=== PATIENT | male | born 1950 | race Caucasian/White ===

== ENCOUNTER 2017-02-07 09:23 | Observation (INO) | payer OTHER, MEDICARE ==
[2017-02-07] MEDS ORDERED: NS 1,000 ML IV ONE (09:35)
[2017-02-07] MEDS ORDERED: ASPIRIN EC 325 MG TAB PO ONE ×2 (09:35→09:59)
[2017-02-07] MEDS ORDERED: FAMOTIDINE 20 MG TAB PO ONE (09:35)
[2017-02-07] MEDS ORDERED: DIAZEPAM 5 MG TAB PO ONE (09:35)
[2017-02-07] MEDS ORDERED: diphenhydrAMINE 25 MG CAP PO ONE ×2 (09:35→09:59)
--- NOTE | 2017-02-07 09:54 | CPEKG ---
Heart Rate: 58 RR Interval: 1034 P-R Interval: 212 QRSD Interval: 98 QT Interval: 440 QTC Interval: 433 P [place]: 53 QRS [place]: -7 T Wave [place]: 32 EKG Severity - NORMAL ECG - EKG Impression: SINUS RHYTHM EKG Impression: FIRST DEGREE AVB Electronically Signed By: Anatoly Cramer 07-Feb-2017 17:34:57
--- NOTE | 2017-02-07 09:54 | CPEKG ---
Heart Rate: 58 RR Interval: 1034 P-R Interval: 212 QRSD Interval: 98 QT Interval: 440 QTC Interval: 433 P [place]: 53 QRS [place]: -7 T Wave [place]: 32 EKG Severity - NORMAL ECG - EKG Impression: SINUS RHYTHM EKG Impression: FIRST DEGREE AVB Electronically Signed By: Anatoly Cramer 07-Feb-2017 17:34:57
[2017-02-07] MEDS ORDERED: FAMOTIDINE 20 MG TAB ONE (09:59)
[2017-02-07] MEDS ORDERED: DIAZEPAM 5 MG TAB ONE (09:59)
[2017-02-07 10:08] LABS: PLATELET COUNT 209 10^3/uL (150-400)
[2017-02-07 10:18] LABS: INR 0.93 (0.83-1.16); PROTIME(PATIENT) 12.4 SEC (12.0-15.0)
--- NOTE | 2017-02-07 12:29 | PDGENHP ---
History & Physical History of Present Illness: 66 year old with hx of signigicant calcium score of 1290 with evidence of increasing pvc's, couplets with exertion coupled with new moderate area of ischemia in the inferior and inferior lateral wall. Pertinent Past, Social, Family History: CAD, Essential htn, pvcs, family hx cad. Relevant Physical Exam: Normal exam.
--- NOTE | 2017-02-07 12:31 | PDPROPOC ---
Sedation Plan of Care Sedation Plan of Care: vital signs stable, mental status noted, patient educated of risks, benefits, alternatives, patient can tolerate sedation ASA Classification: ASA 2 Planned drugs: fentanyl, midazolam Mallampati Score: Class 2 Mallampati Reference Image: Patient passed 3-3-2 rule?: Yes
[2017-02-07] MEDS ORDERED: fentaNYL 100 MCG/2 ML INJ ONE ×2 (13:27→14:44)
[2017-02-07] MEDS ORDERED: LIDOCAINE 1% 300 MG/30 ML SDV ONE (13:27)
[2017-02-07] MEDS ORDERED: MIDAZOLAM 2 MG/2 ML VIAL ONE ×2 (13:28→14:30)
[2017-02-07] MEDS ORDERED: IOPAMIDOL (ISOVUE-370) 150 ML BTL IV ONE (13:28)
[2017-02-07] MEDS ORDERED: HEPARIN 10,000 UNIT/10 ML MDV ONE (14:39)
[2017-02-07] MEDS ORDERED: NITROGLYCERIN 1,500 MCG/15 ML VIAL MISC ONE (14:40)
[2017-02-07] MEDS ORDERED: CLOPIDOGREL BISULFATE 75 MG TAB ONE ×2 (15:02→15:03)
[2017-02-07] MEDS ORDERED: ONDANSETRON 4 MG/2 ML VIAL IVP PRN (15:09)
[2017-02-07] MEDS ORDERED: NITROGLYCERIN 0.4 MG BTL SL PRN (15:09)
[2017-02-07] MEDS ORDERED: HYDROCODONE/APAP 5/325 TAB PO PRN (15:09)
[2017-02-07] MEDS ORDERED: OXYCODONE/APAP 5/325 TAB PO PRN (15:09)
[2017-02-07] MEDS ORDERED: ATROPINE SULFATE 1 MG/10 ML SYR IVP PRN (15:09)
[2017-02-07] MEDS ORDERED: CLOPIDOGREL BISULFATE 75 MG TAB PO ONE ×2 (15:12→15:15)
[2017-02-07] MEDS ORDERED: TEMAZEPAM 15 MG CAP PO PRN (15:15)
[2017-02-07] MEDS ORDERED: LORazepam 2 MG/ML INJ IVP PRN (15:15)
--- NOTE | 2017-02-07 15:21 | PDCTREPORT ---
Cardiothoracic Procedure Rpt Cardiothoracic Procedure Report: Procedure: PCI of the circumflex. Indications: 66-year-old male exertional chest pain consistent with angina, moderately abnormal nuclear stress test with inferolateral ischemia under the care of Dr. Harrison. I am asked by Dr. Harrison to perform PCI of the robinson circumflex. For details of the procedure please see attached computer report. I reviewed the diagnostic angiograms. Patient was anticoagulated with heparin. Using a 6 Japanese EBU 3.75 guiding catheter left main coronary selectively intubated. Using a 0.014 luge wire the circumflex artery stenosis was crossed. The vessel was sized using Q CA. A 2.25 x 20 mm synergy stent was placed on the wire and positioned across the lesion. It was deployed using a single inflation. Stent balloon was used to post dilate the stent. Final orthogonal angiogram showed MORIAH grade 3 flow. Arteriotomy was closed using a Perclose. Conclusions: Successful PCI and stenting of the circumflex artery. Continue dual antiplatelet therapy uninterrupted for 1 year. Aggressive secondary prevention per Dr. Harrison. Patient Problems: Problems Problem Status Onset Status post coronary artery stent placement Acute Abnormal exercise myocardial perfusion study Acute Coronary artery disease Acute Osteoarthritis of knees, bilateral Acute
--- NOTE | 2017-02-07 15:29 | GPN ---
[f rep st] PROCEDURE NOTE DATE OF PROCEDURE: 02/07/2017 INDICATION FOR PROCEDURE: Patient with severely elevated calcium score of approximately 1200, with a bnormal exercise nuclear stress test and evidence of a moderate area of ischemia in the inferior late ral wall coupled with increasing PVCs and ventricular ectopy with exertion. PROCEDURES PERFORMED: 1. Left heart catheterization. 2. Left coronary angiography. 3. Right coronary angiography. 4. Left ventriculogram. 5. Right common femoral artery angiography. PROCEDURE: After informed consent was obtained, the patient was taken to the cardiac catheterization lab where he was prepped and draped in a sterile fashion. Using 1% lidocaine, the right groin was a nesthetized. Using modified Seldinger technique, a 6-Azerbaijani catheter was placed into the right commo n femoral artery without complications. A JL4 catheter was used to take images of the left coronary anatomy in multiple projections. JL4 catheter was exchanged over a guidewire for a JR4 catheter. JR 4 catheter was used to take images of the right coronary artery in multiple projections. JR4 cathete r was exchanged over a guidewire. An angled pigtail catheter was used was used to cross the aortic valve into the left ventricular cavi ty. LVEDP was assessed. Left ventriculogram was performed. Aortic valve gradient was assessed on p ull-back. Angled pigtail catheter was removed over a guidewire without complications. Imaging of th e right common femoral artery demonstrates appropriate placement at mid femoral head of the right com mon femoral artery catheter with no evidence of trauma to the right common femoral artery or iliac sy stem. FINDINGS: 1. Left main normal size and caliber, bifurcates into left anterior descending and left circumflex c oronary artery. There is no evidence of coronary disease in the left main. 2. Left anterior descending is a large caliber vessel that wraps around the left ventricular apex. There are mild luminal irregularities within the left anterior descending, with no evidence of flow-l imiting stenosis. 3. Left circumflex artery demonstrates a moderate-sized mid circumflex stenosis of approximately 70% to 8%. Obtuse marginal branch demonstrates mild luminal irregularities. 4. Right coronary artery is a large caliber dominant artery that bifurcates into PDA and PLV branche s. There are mild luminal irregularities within the right coronary artery, with no evidence of flow- limiting stenosis. 5. Hemodynamics: LVEF 60% to 65%. LVEDP 22 mmHg. Aortic valve gradient none. CONCLUSIONS: 1. Severe single-vessel disease with 70% to 80% stenosis in the mid circumflex coronary artery. 2. Mild luminal irregularities within the left anterior descending and right coronary artery. 3. Normal left ventricular size and function. After reviewing images with significant stenosis within the mid circumflex vessel and with evidence o f inferior lateral wall ischemia, will plan for percutaneous coronary intervention to the circumflex vessel. /[id number]/MODL
--- NOTE | 2017-02-07 15:43 | CPEKG ---
Heart Rate: 52 RR Interval: 1154 P-R Interval: 228 QRSD Interval: 88 QT Interval: 480 QTC Interval: 447 P [place]: 53 QRS [place]: -15 T Wave [place]: 35 EKG Severity - ABNORMAL ECG - EKG Impression: SINUS RHYTHM EKG Impression: VENTRICULAR PREMATURE COMPLEX EKG Impression: FIRST DEGREE AV BLOCK EKG Impression: BORDERLINE LEFT AXIS DEVIATION Electronically Signed By: Anatoly Cramer 07-Feb-2017 17:35:05
[2017-02-07] MEDS ORDERED: amLODIPine BESYLATE 5 MG TAB ONE (16:17)
[2017-02-08 05:02] VITALS: RESP 18
--- NOTE | 2017-02-08 06:13 | PDCARPN ---
Cardiology Progress Note Assessment/Plan: Assessment: 1. CAD with PCI x one to LCX 2. Post of groin bleed 3. Essential Hypertension 4. Hyperlipidemia 5. PVC's Plan: -out of bed this AM and ambulation prior to discharge. Please have cardiology service assess groin prior to discharge -Pt is scheduled for follow up in our office next week -added amlodipine 5 mg daily -increased atorvastatin to 80 mg daily -added plavix 75 mg daily x one year -continue all other out patient medications -Cardiac Rehab 02/08/17 06:10 Subjective: 66 year old male with abnormal nuc with inferior lateral ischemia with single vessel CAD in LCX sp PCI x one. Post op course complicated by groin site bleeding.Hemostasis is now achieved, ecchymosis withoiut hematoma. Pt is asymptoamtic. BP was elevated post op. added amlopdine, bp well controlled with adddtion of amlodipiine.Pt is withoiut complaint this am. Distal pulses in tact Reviewed/Discussed With: multidisciplinary team Time Spent With Patient: 20 minutes Objective: Vital Signs (8 Hrs) Temp Pulse Resp BP Pulse Ox 02/08/17 05:01 36.6 C 53 L 18 143/78 H 91 L 02/07/17 23:53 36.8 C 57 L 16 117/71 95 02/07/17 22:50 117/71 02/07/17 22:40 139/76 H 02/07/17 22:30 121/77 H 02/07/17 22:20 132/71 H Intake/Output (24 Hrs) 02/07/17 02/08/17 02/09/17 05:59 05:59 05:59 Intake Total 2200 Balance 2200 Intake: Oral (ml) 1300 IV Intake (ml) 900 Other: Weight 102.1 kg Number of Voids Urinal 1 Result Diagrams: 02/07/17 09:50 02/07/17 09:50 - Physical Exam Constitutional: WDWN Cardiovascular: regular rate and rhythm Peripheral Pulses: 2+: dorsalis-pedis (R), dorsalis-pedis (L) Musculoskeletal: no muscular tenderness Neurologic: AAOx3, CN II-XII grossly intact Psychiatric: cooperative, interactive ICD10 Worksheet Patient Problems: Problems Problem Status Onset Abnormal exercise myocardial perfusion study Acute Coronary artery disease Acute Status post coronary artery stent placement Acute Osteoarthritis of knees, bilateral Acute
--- NOTE | 2017-02-08 07:13 | GDS ---
[f rep st] DISCHARGE SUMMARY INDICATION FOR ADMISSION: Elective outpatient diagnostic left heart catheterization in the setting of evidence of inferior lateral ischemia, increased ventricular ectopy in the setting of known markedly elevated calcium score of approximately 1200. HOSPITAL COURSE: The patient was admitted for elective diagnostic left heart catheterization which demonstrated a hemodynamically significant stenosis in the mid circumflex vessel. He underwent successful PCI x1 to the mid circumflex vessel without complications. Postoperatively, he did have some right groin bleeding from the femoral artery site. He had a 2nd episode of bleeding about 8 p.m. last night requiring FemoStop deployment. Hemostasis was achieved by approximately 9:30. He has had no further episodes of bleeding throughout the course of the night. On my examination this morning, there is evidence of ecchymosis without hematoma and no active bleeding. His blood pressure was noted to be elevated postoperatively and he was given a one time p.o. dose of amlodipine 10 mg daily on top of his current antihypertensive medications including losartan 100 mg once daily and metoprolol tartrate 25 mg p.o. b.i.d. Postoperatively this morning he is feeling well, he has no cardiac complaints. He is hemodynamically stable. Lipids are suboptimally controlled on his current dose of atorvastatin with LDL of 76. PLAN TODAY: 1. The patient will be discharged home after ambulation and evaluation of right groin site prior to discharge. 2. Will add amlodipine 5 mg once daily. 3. Add Plavix 75 mg daily. 4. Increase atorvastatin to 80 mg daily. 5. No other changes to his outpatient medical therapy including remaining on aspirin 81 mg daily. 6. Post left heart catheterization instructions have been reviewed. 7. Patient will be initiated in cardiac rehab. 8. The patient is scheduled to follow up in my office in 1 week. 30 minutes spent coordinating care /[id number]/MODL MTDD
[2017-02-08 08:05] VITALS: BP 143/86; PULSE 66; TEMP 98.2; O2SAT 97
[2017-02-08] MEDS ORDERED: CLOPIDOGREL BISULFATE 75 MG TAB PO SCH ×2 (09:00)
[2017-02-08] MEDS ORDERED: ASPIRIN EC 325 MG TAB PO SCH (09:00)
[2017-02-08] MEDS ORDERED: amLODIPine BESYLATE 5 MG TAB PO SCH (09:00)
[2017-02-08] MEDS ORDERED: LOSARTAN POTASSIUM 50 MG TAB PO SCH (09:00)
[2017-02-08] MEDS ORDERED: METOPROLOL TARTRATE 25 MG TAB PO SCH (09:00)
[2017-02-08] MEDS ORDERED: NON-FORMULARY NEW DRUG (Losartan Potassium [Cozaar] 100 MG) PO SCH (09:00)
[2017-02-08] MEDS ORDERED: ATORVASTATIN CALCIUM 40 MG TAB PO SCH ×3 (09:00)
[2017-02-08] MEDS ORDERED: MULTIVITAMINS 1 EACH TAB PO SCH (09:00)
[2017-02-08] MEDS ORDERED: NON-FORMULARY NEW DRUG (Omeprazole [Prilosec 20 Mg] 40 MG) PO SCH (09:00)
[2017-02-08] MEDS ORDERED: PANTOPRAZOLE SODIUM 40 MG TAB PO SCH (09:00)
[2017-02-08] MEDS ORDERED: ALLOPURINOL 300 MG TAB PO SCH (09:00)
--- NOTE | 2017-02-08 10:05 | ASDISCHSUM ---
Discharge Information Plan Status:Home with No Needs Medically Cleared to Leave:02/08/2017 Discharge Date:02/08/2017 09:10 AM CM D/C Disposition:Home, Routine, Self-Care ADT D/C Disposition:Home, Routine, Self-Care Projected Discharge Date:02/08/2017 09:10 AM Transportation at D/C:Self Discharge Delay Reason: Follow-Up Date:02/08/2017 09:10 AM Discharge Slot: Final Diagnosis: Placement Information Patient Contact Information Contact Name:MARILY Relationship:Daughter [address] Work Phone: City:[place] Alternate Phone: [facility]/Zip Code:[place] [address] Email: Financial Information Financial Class:MC Primary Plan Desc:MEDICARE OUTPATIENT Primary Plan Number:[id number] Secondary Plan Desc:AARP/MDR SUPPLEMENT Secondary Plan Number:[id number] Assessment Information Intervention Information
--- NOTE | 2017-02-08 10:05 | ASDISCHSUM ---
Discharge Information Plan Status:Home with No Needs Medically Cleared to Leave:02/08/2017 Discharge Date:02/08/2017 09:10 AM CM D/C Disposition:Home, Routine, Self-Care ADT D/C Disposition:Home, Routine, Self-Care Projected Discharge Date:02/08/2017 09:10 AM Transportation at D/C:Self Discharge Delay Reason: Follow-Up Date:02/08/2017 09:10 AM Discharge Slot: Final Diagnosis: Placement Information Patient Contact Information Contact Name:MARILY Relationship:Daughter [address] Work Phone: City:[place] Alternate Phone: [facility]/Zip Code:[place] [address] Email: Financial Information Financial Class:MC Primary Plan Desc:MEDICARE OUTPATIENT Primary Plan Number:[id number] Secondary Plan Desc:AARP/MDR SUPPLEMENT Secondary Plan Number:[id number] Assessment Information Intervention Information
--- NOTE | 2017-02-08 10:05 | ASDISCHSUM ---
Discharge Information Plan Status:Home with No Needs Medically Cleared to Leave:02/08/2017 Discharge Date:02/08/2017 09:10 AM CM D/C Disposition:Home, Routine, Self-Care ADT D/C Disposition:Home, Routine, Self-Care Projected Discharge Date:02/08/2017 09:10 AM Transportation at D/C:Self Discharge Delay Reason: Follow-Up Date:02/08/2017 09:10 AM Discharge Slot: Final Diagnosis: Placement Information Patient Contact Information Contact Name:MARILY Relationship:Daughter [address] [place] Work Phone: City:[place] Alternate Phone: [facility]/Zip Code:[place] [address] Email: Financial Information Financial Class:MC Primary Plan Desc:MEDICARE OUTPATIENT Primary Plan Number:[id number] Secondary Plan Desc:AARP/MDR SUPPLEMENT Secondary Plan Number:[id number] Assessment Information Intervention Information
== END 2017-02-08 09:10 | disposition home or self-care (01) ==
LOC: FCATH 09:23 → F2W 15:09
PROVIDERS: ADMIT Internal Medicine Cardiovascular Disease; ATTEND Internal Medicine Cardiovascular Disease
PROC: 027034Z Dilation of Coronary Artery, One Artery with Drug-eluting Intraluminal Device, Percutaneous Approach (ICD-10-PCS; principal; 2017-02-07)
PROC: 4A023N7 Measurement of Cardiac Sampling and Pressure, Left Heart, Percutaneous Approach (ICD-10-PCS; 2017-02-07)
PROC: B2151ZZ Fluoroscopy of Left Heart using Low Osmolar Contrast (ICD-10-PCS; 2017-02-07)
PROC: B2111ZZ Fluoroscopy of Multiple Coronary Arteries using Low Osmolar Contrast (ICD-10-PCS; 2017-02-07)
DX: I25.119 Atherosclerotic heart disease of native coronary artery with unspecified angina pectoris (principal); I97.610 Postprocedural hemorrhage of a circulatory system organ or structure following a cardiac catheterization; I97.3 Postprocedural hypertension; R94.39 Abnormal result of other cardiovascular function study; I10 Essential (primary) hypertension; E78.5 Hyperlipidemia, unspecified; I47.1 Supraventricular tachycardia; M10.9 Gout, unspecified; K21.0 Gastro-esophageal reflux disease with esophagitis; Z82.49 Family history of ischemic heart disease and other diseases of the circulatory system
CPT/HCPCS: 93005; 93458; C1760; C1769; C1874; C1887; C9600; J1200; J1644; J2250; J3010; Q9967

== ENCOUNTER 2017-10-21 22:04 | Inpatient (IN) | payer OTHER, MEDICARE ==
[2017-10-21] MEDS ORDERED: NS 1,000 ML IV ONE (22:31)
[2017-10-21] MEDS ORDERED: HYDROmorphONE/DILAUDID 1 MG/ML INJ IVP ONE (22:31)
[2017-10-21 22:36] LABS: PLATELET COUNT 262 10^3/uL (150-400)
--- NOTE | 2017-10-21 23:14 | EDPHY ---
H & P Smoking Status: Never smoked Time Seen by Provider: 10/21/17 22:20 HPI/ROS: CHIEF COMPLAINT: Flank pain HISTORY OF PRESENT ILLNESS: 67-year-old male presents to the emergency department with severe left flank pain. The patient has had numerous kidney stones and he states that this feels similar. His pain started over 1 week ago and it was manageable, intermittent. He states over last 4 hr became a increasingly worse. He vomited 1 time secondary to the pain. No diarrhea. No reported trauma. No chest pain or difficulty breathing. His last kidney stone was a urine half ago. He has a local urologist in [place]. No urinary symptoms. No blood in his urine that he has noticed. No fevers or chills. No abdominal pain. No testicular pain. REVIEW OF SYSTEMS: Constitutional: No fever, no chills. Eyes: No double or blurry vision. ENT: No sore throat. Respiratory: No cough, no shortness of breath. Cardiac: No chest pain. Gastrointestinal: No abdominal pain, vomiting or diarrhea. Genitourinary: No dysuria. Musculoskeletal: Left flank pain. No neck pain. Skin: No rashes. Neurological: No headache. (Smita Padgett) Past Medical/Surgical History: Cardiac stents, hypercholesterolemia, hypertension (Dayron,Smita M) Social History: and lives in [place] (Smita Padgett M) Physical Exam: General Appearance: Alert, no distress. Afebrile. Eyes: Pupils equal and round. Extraocular motions are all intact. ENT: Mouth: Mucous membranes moist. Respiratory: No wheezing, rhonchi, or rales, lungs are clear to auscultation. Cardiovascular: Regular rate and rhythm. Gastrointestinal: Abdomen is soft and nontender, no masses, no rebound or guarding, bowel sounds normal. Positive CVA tenderness on the left, none on the right. Neurological: Alert and oriented x 3, cranial nerves II through XII grossly intact Skin: Warm and dry, no rashes. Musculoskeletal: Nontender to palpate along the cervical, thoracic or lumbar spine. Neck is supple. Extremities: Full range of motion and no peripheral edema. Psychiatric: Patient is oriented X 3, there is no agitation. (Abeba Padgetta M) Constitutional: Initial Vital Signs Temperature (C) 36.2 C 10/21/17 22:08 Heart Rate 66 10/21/17 22:08 Respiratory Rate 18 10/21/17 22:08 Blood Pressure 183/82 H 10/21/17 22:08 O2 Sat (%) 96 10/21/17 22:08 O2 Delivery Mode Room Air Allergies/Adverse Reactions: No Known Allergies Allergy (Unverified 12/24/11 08:42) Home Medications: Medication Instructions Recorded Atorvastatin Calcium [Lipitor 40 40 mg PO DAILY 03/23/16 mg (*)] Metoprolol Tartrate [Lopressor 25 25 mg PO DAILY 02/05/17 mg (*)] Multivitamins [Multivitamin (*)] 1 each PO DAILY 02/05/17 Aspirin EC [Aspirin EC 325 mg (*)] 325 mg PO DAILY tab 02/08/17 Clopidogrel Bisulfate [Plavix (*)] 75 mg PO DAILY #30 tab 02/08/17 amLODIPine BESYLATE [Norvasc 5 mg 5 mg PO DAILY #30 tab 02/08/17 (*)] Medical Decision Making - Diagnostics Imaging: Discussed imaging studies w/ at home independent call center agent Radiologist - Diagnostics Imaging Results: Imaging Impressions Abdomen/Pelvis CT 10/21/17 22:32 Impression: 1. Bilateral nephrolithiasis, with features of obstructive uropathy on the left including hydronephrosis and perinephric urine extravasation. A 4 mm calculus within the left side of the urinary bladder suggests recent passage of the stone. 2. Aortic atherosclerosis without aneurysm. 3. Calcification of seminal vesicles and vas deferens suggests altered calcium deposition, potentially related to hyperparathyroidism or diabetes. Results called to Smita Will PA-C, at 11:00 PM Attention: This CT examination is specifically designed to evaluate patients who are clinically suspected of having acute obstructive uropathy. This examination does not use radiographic contrast, and as such, provides only a limited evaluation of the abdomen, pelvis and retroperitoneum. If there is further clinical suspicion for pathological conditions other than obstructive uropathy, a complete CT evaluation of the abdomen and pelvis utilizing intravenous, oral, and rectal contrast should be considered. ED Course/Re-evaluation: 67-year-old male presents emergency department with left flank pain. He has a history of numerous kidney stones. He states that this feels similar. An established and the patient was given IV Dilaudid and IV morphine for pain. Urinalysis reveals large blood without signs of infection. Creatinine is 1.2. Remainder of laboratory studies are otherwise unremarkable. CT imaging of the abdomen pelvis reveals 4 mm stone at UVJ or just about into the bladder. Moderate hydronephrosis noted. He also has some abnormal calcifications to the vas deferens and seminal vesicles. This was reported to me by Dr. Colin Gimenez. Because the patient is on Plavix for his cardiac stents, decision made not to use Toradol IV. Patient was given IV lidocaine drip. He initially was feeling much better. The patient was re-evaluated at 12:50 a.m. And the patient feels that the pain is coming back. Patient will be admitted to the hospitalist for further pain management. I did discuss with the patient the calcifications that were seen within the vas deferens as well as the seminal vesicles which is very abnormal. I did encourage him to arrange follow-up with his primary care provider to discuss this and possibly have a parathyroid hormone level checked. (Smita Padgett) PHYSICIAN DOCUMENTATION: The patient was evaluated and managed by the Physician Gym Attendant. My co- signature indicates that I have reviewed this chart and I agree with the findings and plan of care as documented. I am the secondary supervising physician. (Carleen Fung) Differential Diagnosis: Including but not limited to kidney stones, urinary tract infection, pyelonephritis (Smita Padgett) - Data Points Laboratory Results: Laboratory Results 10/21/17 22:15 10/21/17 22:15 10/21/17 10/21/17 10/21/17 22:59 22:15 22:15 WBC 5.93 10^3/uL 10^3/uL (3.80-9.50) RBC 5.11 10^6/uL 10^6/uL (4.40-6.38) Hgb 15.5 g/dL g/dL (13.7-17.5) Hct 45.5 % % (40.0-51.0) MCV 89.0 fL fL (81.5-99.8) MCH 30.3 pg pg (27.9-34.1) MCHC 34.1 g/dL g/dL (32.4-36.7) RDW 13.2 % % (11.5-15.2) Plt Count 262 10^3/uL 10^3/uL (150-400) MPV 10.1 fL fL (8.7-11.7) Neut % (Auto) 61.9 % % (39.3-74.2) Lymph % (Auto) 20.9 % % (15.0-45.0) [place] % (Auto) 11.0 % % (4.5-13.0) Eos % (Auto) 5.2 % % (0.6-7.6) Baso % (Auto) 0.7 % % (0.3-1.7) Nucleat RBC Rel Count 0.0 % % (0.0-0.2) Absolute Neuts (auto) 3.67 10^3/uL 10^3/uL (1.70-6.50) Absolute Lymphs (auto) 1.24 10^3/uL 10^3/uL (1.00-3.00) Absolute Monos (auto) 0.65 10^3/uL 10^3/uL (0.30-0.80) Absolute Eos (auto) 0.31 10^3/uL 10^3/uL (0.03-0.40) Absolute Basos (auto) 0.04 10^3/uL 10^3/uL (0.02-0.10) Absolute Nucleated RBC 0.00 10^3/uL 10^3/uL (0-0.01) Immature Gran % 0.3 % % (0.0-1.1) Immature Gran # 0.02 10^3/uL 10^3/uL (0.00-0.10) Sodium 140 mEq/L mEq/L (135-145) Potassium 4.2 mEq/L mEq/L (3.3-5.0) Chloride 108 mEq/L mEq/L (97-110) Carbon Dioxide 23 mEq/l mEq/l (22-31) Anion Gap 9 mEq/L mEq/L (8-16) BUN 24 mg/dL H mg/dL (7-23) Creatinine 1.2 mg/dL mg/dL (0.7-1.3) Estimated GFR > 60 Glucose 96 mg/dL mg/dL (70-100) Calcium 9.8 mg/dL mg/dL (8.5-10.4) Urine Color YELLOW Urine Appearance CLEAR Urine pH 5.0 (5.0-7.5) Ur Specific [place] 1.021 (1.002-1.030) Urine Protein NEGATIVE (NEGATIVE) Urine Ketones NEGATIVE (NEGATIVE) Urine Blood 2+ H (NEGATIVE) Urine Nitrate NEGATIVE (NEGATIVE) Urine Bilirubin NEGATIVE (NEGATIVE) Urine Urobilinogen NEGATIVE EU EU (0.2-1.0) Ur Leukocyte Esterase NEGATIVE (NEGATIVE) Urine RBC 50-182 /hpf H /hpf (0-3) Urine WBC 1-3 /hpf /hpf (0-3) Ur Epithelial Cells TRACE /lpf /lpf (NONE-1+) Urine Glucose NEGATIVE (NEGATIVE) Medications Given: Discontinued Medications Hydromorphone HCl (Dilaudid) 0.5 mg IVP EDNOW ONE Stop: 10/21/17 22:32 Last Admin: 10/21/17 22:37 Dose: 0.5 mg Hydromorphone HCl (Dilaudid) 0.5 mg IVP EDNOW ONE Stop: 10/22/17 01:04 Last Admin: 10/22/17 01:08 Dose: 0.5 mg Sodium Chloride (Ns) 1,000 mls @ 0 mls/hr IV ONCE ONE PRN Reason: Wide Open Stop: 10/21/17 22:32 Last Admin: 10/21/17 22:36 Dose: 1,000 mls Lidocaine HCl 150 mg/ Sodium (Chloride) 115 mls @ 600 mls/hr IV EDNOW ONE Stop: 10/22/17 00:04 Last Admin: 10/22/17 00:03 Dose: 115 mls Sodium Chloride (Ns) 1,000 mls @ 0 mls/hr IV EDNOW ONE; Wide Open PRN Reason: Protocol Stop: 10/22/17 01:09 Last Admin: 10/22/17 01:13 Dose: 1,000 mls Sodium Chloride (Ns) 1,000 mls @ 3,000 mls/hr IV ONCE ONE Stop: 10/22/17 02:21 Last Admin: 10/22/17 02:28 Dose: 1,000 mls Ketorolac Tromethamine (Toradol) 15 mg IVP ONCE ONE Stop: 10/22/17 02:15 Last Admin: 10/22/17 02:25 Dose: 15 mg Morphine Sulfate (Morphine) 4 mg IVP EDNOW ONE Stop: 10/21/17 23:11 Last Admin: 10/21/17 23:13 Dose: 4 mg Morphine Sulfate (Morphine) 1 - 2 mg IVP Q1HR PRN PRN Reason: Severe pain Stop: 11/01/17 02:01 Last Admin: 10/22/17 02:19 Dose: 2 mg Tamsulosin HCl (Flomax) 0.4 mg PO EDNOW ONE Stop: 10/22/17 01:06 Last Admin: 10/22/17 01:14 Dose: 0.4 mg Departure - Departure Disposition: [facility] Acute Clinical Impression: Kidney stone on left side Condition: Good
[2017-10-21] MEDS ORDERED: ONDANSETRON DISINTEGRATING 4 MG TAB ONE (23:17)
[2017-10-21] MEDS ORDERED: LIDOCAINE 1% 150 MG in NS 100 ML IV ONE (23:53)
[2017-10-22] MEDS ORDERED: HYDROmorphONE/DILAUDID 1 MG/ML INJ IVP ONE (01:03)
[2017-10-22] MEDS ORDERED: TAMSULOSIN HCL 0.4 MG CAP PO ONE (01:05)
[2017-10-22] MEDS ORDERED: NS 1,000 ML IV ONE ×2 (01:08→02:02)
[2017-10-22] MEDS ORDERED: ONDANSETRON 4 MG/2 ML VIAL IVP PRN (02:02)
[2017-10-22] MEDS ORDERED: ACETAMINOPHEN 325 MG TAB PO PRN (02:02)
[2017-10-22] MEDS ORDERED: ONDANSETRON DISINTEGRATING 4 MG TAB PO PRN (02:02)
[2017-10-22] MEDS ORDERED: KETOROLAC 15 MG/1 ML SDV IVP ONE (02:14)
--- NOTE | 2017-10-22 02:56 | PDGENHP ---
History and Physical - Chief Complaint Flank pain - History of Present Illness 67 yo M w/ hx of CAD and previous urolithiasis presents with L flank pain. Patient has been experiencing L flank pain on and off for about a week. He actually thought that this was improved this morning. However, this afternoon, the pain returned severely. This was associated with nausea but he denies fevers , dysuria, and chills. He has had various prior lithotripsies for the same. He continues to be in significant pain and is being admitted for pain control. Case discussed with ED physician Dr. Fung. Previous records reviewed including details of PCI in February [address] Harrison. History Information - Allergies/Home Medication List Allergies/Adverse Reactions: No Known Allergies Allergy (Unverified 12/24/11 08:42) Home Medications: Atorvastatin Calcium [Lipitor 40 mg (*)] 40 mg PO DAILY 03/23/16 [Last Taken 04/25 07:00] Metoprolol Tartrate [Lopressor 25 mg (*)] 25 mg PO DAILY 02/05/17 [Last Taken 07:00] Multivitamins [Multivitamin (*)] 1 each PO DAILY 02/05/17 [Last Taken 02/07/17 07:00] I have personally reviewed and updated: family history, medical history - Past Medical History coronary artery disease - Surgical History Reports: coronary stent Additional surgical history: Lithotripsy - Family History Additional family history: Kidney stones - Social History Smoking Status: Never smoked Review of Systems Review of Systems: ROS: 10pt was reviewed & negative except for what was stated in HPI & below Physical Exam Physical Exam: Temp Pulse Resp BP Pulse Ox 36.6 C 64 16 158/80 H 96 10/22/17 01:34 10/22/17 01:34 10/22/17 01:34 10/22/17 01:34 10/22/17 01:34 O2 (L/minute) 2 Constitutional: appears nourished, uncomfortable Eyes: PERRL, EOMI Ears, Nose, Mouth, Throat: moist mucous membranes, no oral mucosal ulcers Cardiovascular: regular rate and rhythym, no murmur, rub, or gallop Respiratory: no respiratory distress, clear to auscultation Gastrointestinal: normoactive bowel sounds, soft, non-tender abdomen Genitourinary: no bladder fullness, other (+L CVAT) Skin: warm, normal color Musculoskeletal: full muscle strength, no muscle tenderness Neurologic: AAOx3 Psychiatric: interacting appropriately, not anxious Lab Data & Imaging Review 10/21/17 22:15 10/21/17 22:15 WBC 5.93 10^3/uL (3.80-9.50) 10/21/17 22:15 RBC 5.11 10^6/uL (4.40-6.38) 10/21/17 22:15 Hgb 15.5 g/dL (13.7-17.5) 10/21/17 22:15 Hct 45.5 % (40.0-51.0) 10/21/17:15 MCV 89.0 fL (81.5-99.8) 10/21/17:15 MCH 30.3 pg (27.9-34.1) 10/21/17 22:15 MCHC 34.1 g/dL (32.4-36.7) 10/21/17:15 RDW 13.2 % (11.5-15.2) 10/21/17 22:15 Plt Count 262 10^3/uL (150-400) 10/21/17 22:15 MPV 10.1 fL (8.7-11.7) 10/21/17 22:15 Neut % (Auto) 61.9 % (39.3-74.2) 10/21/17 22:15 Lymph % (Auto) 20.9 % (15.0-45.0) 10/21/17:15 [place] % (Auto) 11.0 % (4.5-13.0) 10/21/17 22:15 Eos % (Auto) 5.2 % (0.6-7.6) 10/21/17 22:15 Baso % (Auto) 0.7 % (0.3-1.7) 10/21/17:15 Nucleat RBC Rel Count 0.0 % (0.0-0.2) 10/21/17 22:15 Absolute Neuts (auto) 3.67 10^3/uL (1.70-6.50) 10/21/17 22:15 Absolute Lymphs (auto) 1.24 10^3/uL (1.00-3.00) 10/21/17 22:15 Absolute Monos (auto) 0.65 10^3/uL (0.30-0.80) 10/21/17 22:15 Absolute Eos (auto) 0.31 10^3/uL (0.03-0.40) 10/21/17 22:15 Absolute Basos (auto) 0.04 10^3/uL (0.02-0.10) 10/21/17 22:15 Absolute Nucleated RBC 0.00 10^3/uL (0-0.01) 10/21/17 22:15 Immature Gran % 0.3 % (0.0-1.1) 10/21/17 22:15 Immature Gran # 0.02 10^3/uL (0.00-0.10) 10/21/17 22:15 Sodium 140 mEq/L (135-145) 10/21/17 22:15 Potassium 4.2 mEq/L (3.3-5.0) 10/21/17 22:15 Chloride 108 mEq/L (97-110) 10/21/17 22:15 Carbon Dioxide 23 mEq/l (22-31) 10/21/17 22:15 Anion Gap 9 mEq/L (8-16) 10/21/17 22:15 BUN 24 mg/dL (7-23) H 10/21/17 22:15 Creatinine 1.2 mg/dL (0.7-1.3) 10/21/17 22:15 Estimated GFR > 60 10/21/17 22:15 Glucose 96 mg/dL (70-100) 10/21/17 22:15 Calcium 9.8 mg/dL (8.5-10.4) 10/21/17 22:15 Urine Color YELLOW 10/21/17 22:59 Urine Appearance CLEAR 10/21/17 22:59 Urine pH 5.0 (5.0-7.5) 10/21/17 22:59 Ur Specific [place] 1.021 (1.002-1.030) 10/21/17 22:59 Urine Protein NEGATIVE (NEGATIVE) 10/21/17 22:59 Urine Ketones NEGATIVE (NEGATIVE) 10/21/17 22:59 Urine Blood 2+ (NEGATIVE) H 10/21/17 22:59 Urine Nitrate NEGATIVE (NEGATIVE) 10/21/17 22:59 Urine Bilirubin NEGATIVE (NEGATIVE) 10/21/17 22:59 Urine Urobilinogen NEGATIVE EU (0.2-1.0) 10/21/17 22:59 Ur Leukocyte Esterase NEGATIVE (NEGATIVE) 10/21/17 22:59 Urine RBC 50-182 /hpf (0-3) H 10/21/17 22:59 Urine WBC 1-3 /hpf (0-3) 10/21/17 22:59 Ur Epithelial Cells TRACE /lpf (NONE-1+) 10/21/17 22:59 Urine Glucose NEGATIVE (NEGATIVE) 10/21/17 22:59 Imaging Review: Imaging Impressions Abdomen/Pelvis CT 10/21/17 22:32 Impression: 1. Bilateral nephrolithiasis, with features of obstructive uropathy on the left including hydronephrosis and perinephric urine extravasation. A 4 mm calculus within the left side of the urinary bladder suggests recent passage of the stone. 2. Aortic atherosclerosis without aneurysm. 3. Calcification of seminal vesicles and vas deferens suggests altered calcium deposition, potentially related to hyperparathyroidism or diabetes. Results called to Smita Will PA-C, at 11:00 PM Attention: This CT examination is specifically designed to evaluate patients who are clinically suspected of having acute obstructive uropathy. This examination does not use radiographic contrast, and as such, provides only a limited evaluation of the abdomen, pelvis and retroperitoneum. If there is further clinical suspicion for pathological conditions other than obstructive uropathy, a complete CT evaluation of the abdomen and pelvis utilizing intravenous, oral, and rectal contrast should be considered. Assessment & Plan Assessment: 67 yo M w/ hx of CAD and urolithiasis presents with pain from urolithiasis. Plan: 1. Urolithiasis - Presents with pain for 1 week; worse on day of admission. CT reveals bilateral nephrolithiasis with features of obstructive uropathy on the left including hydronephrosis and perinephric urine extravasation. A 4 mm calculus within the left side of the urinary bladder suggests recent passage of the stone. Patient continues to have significant pain as is being admitted for observation and pain control. - Admit for observation - Continue aggressive hydration - Morphine PRN for pain control 2. Hx CAD - PCI x1 to L circumflex by Dr. Harrison in February of 2017. Continue DAPT, BB, and statin. 3. HTN - Continue home medications, needs reconciliation. Diet - Regular Code - Full Ppx - SCDs Dispo - Admit under observation status
[2017-10-22 05:03] LABS: PLATELET COUNT 223 10^3/uL (150-400)
[2017-10-22] MEDS ORDERED: oxyCODONE IR 5 MG TAB PO PRN (10:18)
[2017-10-22] MEDS: METOPROLOL TARTRATE 25 MG TAB PO SCH (10:30)
[2017-10-22] MEDS: ROSUVASTATIN CALCIUM 20 MG TAB PO SCH (10:30)
[2017-10-22] MEDS: TAMSULOSIN HCL 0.4 MG CAP PO SCH (10:30)
[2017-10-22] MEDS: CLOPIDOGREL BISULFATE 75 MG TAB PO SCH (10:30)
[2017-10-22] MEDS: ASPIRIN 81 MG CHEWABLE TAB PO SCH (10:30)
[2017-10-22] MEDS: amLODIPine BESYLATE 5 MG TAB PO SCH (10:30)
[2017-10-22] MEDS: Febuxostat [Uloric] 40 MG PO SCH (10:31)
[2017-10-22] MEDS: NS 1,000 ML IV SCH ×2 (10:38→21:15)
--- NOTE | 2017-10-22 15:03 | ASMTCMCOM ---
CM Note CM Note Notes: Chart reviewed. Patient admitted via ED with c/o flank pain. Has hx of kidney stone. Per CT has a stone. No needs identified at this time, CM available should needs arise. Plan: DC home independently when medically cleared for dc. Date Signed: 10/22/2017 03:02 PM Electronically Signed By:Dominique Moss RN
--- NOTE | 2017-10-22 17:35 | HOSPPROG ---
Hospitalist Progress Note Assessment/Plan: * 4mm kidney stone with hydro -per CT, stone has passed into bladder -patient continues to have severe spasms of pain -check KUB -continue IVF/pain control/IV morphine * Hyperkalemia -hold losartan * CAD/stent -ASA/Plavix * Obesity BMI 31 Subjective: Severe pain continues, worried the stone isn't really passed Objective: Vital Signs Temp Pulse Resp BP Pulse Ox 36.6 C 54 L 16 140/83 H 91 L 10/22/17 17:05 10/22/17 17:05 10/22/17 17:05 10/22/17 17:05 10/22/17 17:05 Laboratory Results 10/22/17 04:32 10/22/17 04:32 10/21/17 10/22/17 10/23/17 05:59 05:59 05:59 Intake Total 3550 Output Total [address] abd - 4mm stone in bladder, suggests recent passage d/w Dr. Cummings wom[facility] nurse practitioner for urology - no need to worry about the urine extravasation, common finding, no further imaging needed - Physical Exam Constitutional: no apparent distress, appears nourished, not in pain Cardiovascular: regular rate and rhythym, no murmur, rub, or gallop Respiratory: no respiratory distress, no rales or rhonchi, clear to auscultation Gastrointestinal: normoactive bowel sounds, soft, non-tender abdomen, no palpable masses Skin: no rashes or abrasions, no fluctuance, no induration Musculoskeletal: full muscle strength, no muscle tenderness, normal joint ROM Neurologic: AAOx3, sensation intact bilaterally ICD10 Worksheet Patient Problems: Problems Problem Status Onset Kidney stone on left side Acute Abnormal exercise myocardial perfusion study Acute Coronary artery disease Acute Osteoarthritis of knees, bilateral Acute Status post coronary artery stent placement Acute
[2017-10-23 05:03] LABS: PLATELET COUNT 197 10^3/uL (150-400)
[2017-10-23 08:40] VITALS: BP 161/85
[2017-10-23] MEDS: TAMSULOSIN HCL 0.4 MG CAP PO SCH (08:48)
[2017-10-23] MEDS: CLOPIDOGREL BISULFATE 75 MG TAB PO SCH (08:49)
[2017-10-23] MEDS: ROSUVASTATIN CALCIUM 20 MG TAB PO SCH (08:49)
[2017-10-23] MEDS: METOPROLOL TARTRATE 25 MG TAB PO SCH (08:49)
[2017-10-23] MEDS: ASPIRIN 81 MG CHEWABLE TAB PO SCH (08:49)
[2017-10-23] MEDS: amLODIPine BESYLATE 5 MG TAB PO SCH (08:49)
[2017-10-23] MEDS: Febuxostat [Uloric] 40 MG PO SCH (08:52)
--- NOTE | 2017-10-23 15:57 | PDMN ---
Medical Necessity Medical necessity: change to IP;los>2mn for kidney stone with hydro w/continued severe spasms of pain, and hyperkalemia; stone passed into bladder; requires continued IVF, and pain control with IV morphine, hold Losartan; comorbid CAD, obesity; per order and progress note 10/22/17
--- NOTE | 2017-10-23 19:34 | GDS ---
[f rep st] DISCHARGE SUMMARY DISCHARGE DIAGNOSES: 1. 4 mm kidney stone with hydronephrosis. 2. Hyperkalemia. 3. Coronary artery disease, status post stent. 4. Obesity, body mass index 31. HISTORY: Jluis is a 67-year-old male who presented with left flank pain. CT scan showed a 4 mm kidn ey stone with hydronephrosis. His initial CAT scan did look like the stone had already passed into t he bladder. However, he continued to have persistent, severe left flank pain, requiring a more prolo nged hospitalization. That pain has finally completely subsided. The etiology of the persistent chelsea n is unclear. He may have had residual ureteral spasms versus pain due to urine extravasation noted perinephrically. At the time of discharge, however, he has been pain-free for almost 24 hours and ena diop very anxious for discharge. He is well established with a urologist in [place]; he plans to f ollow up. He has extensive bilateral nonobstructive ureterolithiasis residually. The patient had transient hyperkalemia, and his losartan was held for a 24-hour period, but that has resolved, and I feel he can now resume his previous medication. DISCHARGE MEDICATIONS: Please see computerized record for a full detailed list. There were no new m edications given at hospital discharge. ADDITIONAL DISCHARGE INSTRUCTIONS: Follow up with Urology. Greater than 30 minutes' time was spent arranging this discharge. Patient was seen and examined by bj hager on the day of discharge. /[id number]/MODL
== END 2017-10-23 10:30 | disposition home or self-care (01) | DRG 694 ==
LOC: F1N 10-22 01:32 → OBSVTOIN 10-22 17:28
PROVIDERS: ADMIT Student in an Organized Health Care Education/Training Program; ATTEND Internal Medicine
DX: N13.2 Hydronephrosis with renal and ureteral calculous obstruction (principal); N13.8 Other obstructive and reflux uropathy; I25.10 Atherosclerotic heart disease of native coronary artery without angina pectoris; E78.00 Pure hypercholesterolemia, unspecified; I10 Essential (primary) hypertension; E66.9 Obesity, unspecified; Z68.31 Body mass index [BMI] 31.0-31.9, adult; E87.5 Hyperkalemia; Z95.5 Presence of coronary angioplasty implant and graft
CPT/HCPCS: 96365; J1170; J1885; J2270

== ENCOUNTER 2018-07-21 20:22 | Emergency (ER) | payer OTHER, MEDICARE ==
[2018-07-21] MEDS ORDERED: NS 1,000 ML IV ONE (20:40)
--- NOTE | 2018-07-21 20:40 | EDPHY ---
H & P Stated Complaint: Poss kidney stone, left flank pain Time Seen by Provider: 07/21/18 20:40 HPI/ROS: HPI CHIEF COMPLAINT: Left flank pain. HISTORY OF PRESENT ILLNESS: This is a 68-year-old male, history of hypertension , hyperlipidemia, coronary artery disease with stents, as well as a history of kidney stones, presents emergency room with left flank pain. This started 4 days ago however is acutely gotten worse tonight. He has associated nausea with ongoing left flank pain. He denies any chest pain or shortness of breath, denies fever. States the pain got severe tonight with associated nausea sharp stabbing left- sided flank pain no testicular pain, no urinary symptoms. Past Medical History: Hypertension, hyperlipidemia, coronary artery disease with stent, kidney stone Past Surgical History: Coronary artery disease with stent Social History: Denies drugs alcohol tobacco Family History: Noncontributory ROS REVIEW OF SYSTEMS: 10 Systems were reviewed and negative with the exception of the elements mentioned in the history of present illness. Exam Constitutional triage nursing summary reviewed, vital signs reviewed, awake/ alert. Eyes normal conjunctivae and sclera, EOMI, PERRLA. HENT normal inspection, atraumatic, moist mucus membranes, no epistaxis, neck supple/ no meningismus, no raccoon eyes. Respiratory clear to auscultation bilaterally, normal breath sounds, no respiratory distress, no wheezing. Cardiovascular rate normal, regular rhythm, no murmur, no edema, distal pulses normal. Gastrointestinal no pulsatile mass, soft, non-tender, no rebound, no guarding, normal bowel sounds, no distension, no pulsatile mass. Genitourinary no CVA tenderness. Musculoskeletal no midline vertebral tenderness, full range of motion, no calf swelling, no tenderness of extremities, no meningismus, good pulses, neurovascularly intact. Skin pink, warm, & dry, no rash, skin atraumatic. Neurologic awake, alert and oriented x 3, AAOx3, moves all 4 extremities equally, motor intact, sensory intact, CN II-XII intact, normal cerebellar, normal vision, normal speech. Psychiatric normal mood/affect. Heme/Lymph/Immune no lymphadenopathy. Differential Diagnosis: Differential diagnosis includes but is not limited to and in no particular order: Bowel obstruction, appendicitis, gallbladder disease, diverticulitis, colitis, enteritis, perforated viscus, gastritis, GERD , esophagitis, urinary tract infection, pyelonephritis, kidney stones Medical Decision Making: Plan for this patient IV establishment with IV fluid bolus, IV Dilaudid 1 mg for pain control, IV Zofran for nausea 4 mg, basic labs , urinalysis, CT scan abdomen pelvis without contrast for flank pain. Re-evaluation: 2: Patient re-evaluated this time is resting comfortably he has no pain. The patient received 1 mg IV Dilaudid and IV fluids. He has not had any vomiting here. He denies any chest pain or shortness of breath. He presents to the emergency room with left flank pain. He denies abdominal pain, denies testicular pain. He did complain of urinary discomfort. However upon review his CT scan of his abdomen pelvis without contrast for kidney stone shows no evidence of hydroureter hydronephrosis or kidney stone in the collecting system. He does have kidney stones in his kidney parenchyma. I doubt this is causing him any pain. The patient's urinalysis is unremarkable no signs of infection or blood. I do recommend he stays well hydrated and rest. We discussed return precautions he understands return emergency room if develops worsening discomfort this includes back pain, abdominal pain, vomiting , not doing well On re-examination she does have some mild left posterior SI joint he P this may be the cause of his back pain. Recommend anti-inflammatory pain medicine, rest, and return if worse. Additionally the patient's CT scan showed pulmonary nodule. I have discussed this with him in detail. He should follow up with his primary care doctor about this. I discussed the patient's CT scan results with him about the pulmonary nodule. I do recommend he follows up with his doctor in 3-6 months for repeat imaging. He understands he is comfortable this plan. Source: Patient - Personal History Current Tetanus Diphtheria and Acellular Pertussis (TDAP): Yes - Medical/Surgical History Hx Asthma: No Hx Chronic Respiratory Disease: No Hx Diabetes: No Hx Cardiac Disease: Yes Hx Renal Disease: No Hx Cirrhosis: No Hx Alcoholism: No Hx HIV/AIDS: No Hx Splenectomy or Spleen Trauma: No Other PMH: Positive calcium score, abnormal treadmill stress test, kidney stones , htn, high cholestrol, cardiac stents - Social History Smoking Status: Never smoked Constitutional: Initial Vital Signs Heart Rate 62 07/21/18 20:25 Respiratory Rate 16 07/21/18 20:25 Blood Pressure 157/92 H 07/21/18 20:25 O2 Sat (%) 95 07/21/18 20:25 O2 Delivery Mode Nasal Cannula O2 (L/minute) 2 Allergies/Adverse Reactions: No Known Allergies Allergy (Unverified 07/21/18 20:25) Home Medications: Medication Instructions Recorded Metoprolol Tartrate [Lopressor 25 50 mg PO DAILY 02/05/17 mg (*)] Multivitamins [Multivitamin (*)] 1 each PO DAILY 02/05/17 Clopidogrel Bisulfate [Plavix (*)] 75 mg PO DAILY #30 tab 02/08/17 amLODIPine BESYLATE [Norvasc 5 mg 5 mg PO DAILY #30 tab 02/08/17 (*)] Aspirin [Aspirin 81mg (*)] 81 mg PO DAILY 10/22/17 Carboxymethylcellulose 1% [Refresh 1 drop EACHEYE DAILY PRN 10/22/17 Celluvisc (*)] Febuxostat [ULORIC] 40 mg PO DAILY 10/22/17 Herbals/Supplements -Info Only 1 ea PO DAILY 10/22/17 Losartan Potassium 100 mg PO DAILY 10/22/17 Rosuvastatin Calcium [Crestor 20mg 20 mg PO DAILY 10/22/17 (*)] celeCOXIB [Celebrex (*)] 200 mg PO DAILY 10/22/17 Medical Decision Making - Data Points Laboratory Results: Laboratory Results 07/21/18 20:38 07/21/18 20:38 Medications Given: Discontinued Medications Hydromorphone HCl (Dilaudid) 1 mg IVP EDNOW ONE Stop: 07/21/18 20:46 Last Admin: 07/21/18 20:58 Dose: 1 mg Sodium Chloride (Ns) 1,000 mls @ 0 mls/hr IV EDNOW ONE; Wide Open PRN Reason: Protocol Stop: 07/21/18 20:41 Last Admin: 07/21/18 20:58 Dose: 1,000 mls Ondansetron HCl (Zofran) 4 mg IVP EDNOW ONE Stop: 07/21/18 20:46 Last Admin: 07/21/18 20:58 Dose: 4 mg Point of Care Test Results: Chemistry 07/21/18 21:49 POC Troponin I 0.02 ng/mL ng/mL (0.00-0.08) Departure - Departure Disposition: Home, Routine, Self-Care Clinical Impression: Kidney stone on left side, Pulmonary nodule Back pain Qualifiers: Back pain location: low back pain Chronicity: acute Back pain laterality: unspecified Sciatica presence: without sciatica Qualified Code(s): M54.5 - Low back pain Condition: Good Instructions: Pulmonary Nodules (ED), Back Pain (ED) Additional Instructions: 1. Make sure to drink lots of fluids and stay well-hydrated 2. Follow up with Urology 3. Return to the emergency room if develops worsening pain, vomiting, fever, not doing well. 4. On her CT scan today we noticed that you have a pulmonary nodule seen in her left lower lung. This needs a repeat evaluation with her primary care doctor in 3-6 months. Referrals: Tacos Mccoy MD [Primary Care Provider] - As per Instructions
[2018-07-21] MEDS ORDERED: ONDANSETRON 4 MG/2 ML VIAL IVP ONE (20:45)
[2018-07-21] MEDS ORDERED: HYDROmorphONE/DILAUDID 2 MG/ML INJ IVP ONE (20:45)
[2018-07-21 20:59] LABS: PLATELET COUNT 227 10^3/uL (150-400)
[2018-07-21 22:48] VITALS: BP 133/73
== END 2018-07-21 23:44 | disposition home or self-care (01) ==
DX: N20.0 Calculus of kidney (principal); R91.8 Other nonspecific abnormal finding of lung field; M54.5 Low back pain; E86.9 Volume depletion, unspecified; I10 Essential (primary) hypertension; E78.5 Hyperlipidemia, unspecified; I25.10 Atherosclerotic heart disease of native coronary artery without angina pectoris; Z95.5 Presence of coronary angioplasty implant and graft
CPT/HCPCS: 74176; 96361; 96374; 96375; 99285; J1170; J2405; 84484-ER

== ENCOUNTER 2018-07-23 08:12 | Emergency (ER) | payer OTHER, MEDICARE ==
--- NOTE | 2018-07-23 08:29 | EDPHY ---
H & P Time Seen by Provider: 07/23/18 08:26 HPI/ROS: Chief complaint. Back pain HPI. 68-year-old male with left flank pain that worsened over night. He has had off and on for left flank pain for 1 week. Sudden onset this morning early. He was seen 2 days ago for similar symptoms and had normal workup. Patient tells me the pain is not worse with palpation or walking. Tells not get comfortable. He recently refer read a rugby game and was running up and down the field without back pain. He denies urinary symptoms. No fever. No chest pain or shortness of breath. ROS 10 systems were reviewed and negative with the exception of the elements mentioned in the history of present illness Past Medical/Surgical History: Abnormal treadmill, hypertension, coronary artery disease with stents, kidney stones, hypertension, dyslipidemia Social History: , nonsmoker, no alcohol Smoking Status: Never smoked Physical Exam: General Appearance: Alert well-developed male mild distress vital signs are stable Eyes: Pupils equal and round no pallor or injection. ENT, Mouth: Mucous membranes are moist. Respiratory: There are no retractions, lungs are clear to auscultation. Cardiovascular: Regular rate and rhythm. Gastrointestinal: Abdomen is soft and nontender. There is no masses. He has normal bowel sounds. He shows me tenderness to the left flank but it is not worse with palpation. Really no tenderness over the spine Neurological: Awake and alert, sensory and motor exams grossly normal. Skin: Warm and dry, no rashes. Musculoskeletal: Neck is supple nontender. Extremities symmetrical, full range of motion. Psychiatric: Patient is oriented X 3, there is no agitation. Constitutional: Initial Vital Signs Temperature (C) 36.7 C 07/23/18 08:15 Heart Rate 61 07/23/18 08:15 Respiratory Rate 18 07/23/18 08:15 Blood Pressure 210/88 H 07/23/18 08:15 O2 Sat (%) 97 07/23/18 08:15 O2 Delivery Mode Room Air Allergies/Adverse Reactions: No Known Allergies Allergy (Verified 07/23/18 08:14) Home Medications: Medication Instructions Recorded Metoprolol Tartrate [Lopressor 25 50 mg PO DAILY 02/05/17 mg (*)] Multivitamins [Multivitamin (*)] 1 each PO DAILY 02/05/17 Clopidogrel Bisulfate [Plavix (*)] 75 mg PO DAILY #30 tab 02/08/17 amLODIPine BESYLATE [Norvasc 5 mg 5 mg PO DAILY #30 tab 02/08/17 (*)] Aspirin [Aspirin 81mg (*)] 81 mg PO DAILY 10/22/17 Carboxymethylcellulose 1% [Refresh 1 drop EACHEYE DAILY PRN 10/22/17 Celluvisc (*)] Febuxostat [ULORIC] 40 mg PO DAILY 10/22/17 Herbals/Supplements -Info Only 1 ea PO DAILY 10/22/17 Losartan Potassium 100 mg PO DAILY 10/22/17 Rosuvastatin Calcium [Crestor 20mg 20 mg PO DAILY 10/22/17 (*)] celeCOXIB [Celebrex (*)] 200 mg PO DAILY 10/22/17 oxyCODONE/APAP 5/325 [Percocet 1 tab PO Q4-6PRN PRN #10 tab 07/23/18 5/325 (*)] Medical Decision Making - Diagnostics Imaging Results: Imaging Impressions Abdomen/Pelvis CT 07/23/18 08:33 Impression: 1. No clear explanation for left-sided flank pain. 2. Bilateral nephrolithiasis unchanged since 2 days prior. No hydronephrosis or ureteral calculi. 3. 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 No mass or pathologically enlarged node. 4. Minimal diverticulosis throughout the ascending, transverse, and descending colon. No acute diverticulitis or bowel obstruction. 5. Three-vessel calcified coronary plaque. No aneurysm. 6. Severe multilevel degenerative disk and facet arthropathy. No fracture or bone lesion. 7. Right lower lobe pulmonary nodule unchanged. Recommend follow up noncontrast chest CT in 3-6 months as previously recommended. Findings discussed with Emergency Department physician, Suhas Delaney, on 2018 at 9:43 a.m. Attention: This CT examination is specifically designed to evaluate patients who are clinically suspected of having acute obstructive uropathy. This examination does not use radiographic contrast, and as such, provides only a limited evaluation of the abdomen, pelvis and retroperitoneum. If there is further clinical suspicion for pathological conditions other than obstructive uropathy, a complete CT evaluation of the abdomen and pelvis utilizing intravenous, oral, and rectal contrast should be considered. CT abdomen and pelvis without IV contrast shows no evidence of ureteral stones or hydronephrosis. 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 Unchanged from CT 2 days ago Procedures: IV normal saline Dilaudid for pain. Toradol for pain. ED Course/Re-evaluation: Re-evaluation 11:25 a.m.. Pain better controlled. Patient and I discussed imaging and lab results. We discussed treatment plan including criteria for return importance of follow-up and further evaluation. He expresses understanding and agreement Differential Diagnosis: I wonder if this is musculoskeletal in etiology as he has fairly severe DJD to his back. I considered kidney stone, diverticulitis, urinary tract infection - Data Points Laboratory Results: Laboratory Results 07/23/18 08:40 07/23/18 08:40 07/23/18 07/23/18 07/23/18 08:40 08:40 08:40 WBC 4.75 10^3/uL 10^3/uL (3.80-9.50) RBC 5.25 10^6/uL 10^6/uL (4.40-6.38) Hgb 15.4 g/dL g/dL (13.7-17.5) Hct 45.5 % % (40.0-51.0) MCV 86.7 fL fL (81.5-99.8) MCH 29.3 pg pg (27.9-34.1) MCHC 33.8 g/dL g/dL (32.4-36.7) RDW 12.3 % % (11.5-15.2) Plt Count 222 10^3/uL 10^3/uL (150-400) MPV 10.1 fL fL (8.7-11.7) Neut % (Auto) 52.7 % % (39.3-74.2) Lymph % (Auto) 27.6 % % (15.0-45.0) [place] % (Auto) 11.8 % % (4.5-13.0) Eos % (Auto) 6.9 % % (0.6-7.6) Baso % (Auto) 0.6 % % (0.3-1.7) Nucleat RBC Rel Count 0.0 % % (0.0-0.2) Absolute Neuts (auto) 2.50 10^3/uL 10^3/uL (1.70-6.50) Absolute Lymphs (auto) 1.31 10^3/uL 10^3/uL (1.00-3.00) Absolute Monos (auto) 0.56 10^3/uL 10^3/uL (0.30-0.80) Absolute Eos (auto) 0.33 10^3/uL 10^3/uL (0.03-0.40) Absolute Basos (auto) 0.03 10^3/uL 10^3/uL (0.02-0.10) Absolute Nucleated RBC 0.00 10^3/uL 10^3/uL (0-0.01) Immature Gran % 0.4 % % (0.0-1.1) Immature Gran # 0.02 10^3/uL 10^3/uL (0.00-0.10) Sodium 139 mEq/L mEq/L (135-145) Potassium 4.3 mEq/L mEq/L (3.5-5.2) Chloride 103 mEq/L mEq/L (97-110) Carbon Dioxide 26 mEq/l mEq/l (22-31) Anion Gap 10 mEq/L mEq/L (6-14) BUN 17 mg/dL mg/dL (7-23) Creatinine 0.9 mg/dL mg/dL (0.7-1.3) Estimated GFR > 60 Glucose 102 mg/dL H mg/dL (70-100) Calcium 9.2 mg/dL mg/dL (8.5-10.4) Total Bilirubin 0.6 mg/dL mg/dL (0.1-1.4) Conjugated Bilirubin 0.4 mg/dL mg/dL (0.0-0.5) Unconjugated Bilirubin 0.2 mg/dL mg/dL (0.0-1.1) AST 53 IU/L IU/L (17-59) ALT 69 IU/L IU/L (21-72) Alkaline Phosphatase 70 IU/L IU/L (38-126) Total Protein 6.3 g/dL g/dL (6.3-8.2) Albumin 4.1 g/dL g/dL (3.5-5.0) Urine Color Urine Appearance Urine pH Ur Specific [place] Urine Protein Urine Ketones Urine Blood Urine Nitrate Urine Bilirubin Urine Urobilinogen Ur Leukocyte Esterase Urine RBC Urine WBC Ur Epithelial Cells Urine Mucus Urine Glucose 07/23/18 08:20 WBC RBC Hgb Hct MCV MCH MCHC RDW Plt Count MPV Neut % (Auto) Lymph % (Auto) [place] % (Auto) Eos % (Auto) Baso % (Auto) Nucleat RBC Rel Count Absolute Neuts (auto) Absolute Lymphs (auto) Absolute Monos (auto) Absolute Eos (auto) Absolute Basos (auto) Absolute Nucleated RBC Immature Gran % Immature Gran # Sodium Potassium Chloride Carbon Dioxide Anion Gap BUN Creatinine Estimated GFR Glucose Calcium Total Bilirubin Conjugated Bilirubin Unconjugated Bilirubin AST ALT Alkaline Phosphatase Total Protein Albumin Urine Color YELLOW Urine Appearance CLEAR Urine pH 6.0 (5.0-7.5) Ur Specific [place] 1.017 (1.002-1.030) Urine Protein NEGATIVE (NEGATIVE) Urine Ketones TRACE H (NEGATIVE) Urine Blood NEGATIVE (NEGATIVE) Urine Nitrate NEGATIVE (NEGATIVE) Urine Bilirubin NEGATIVE (NEGATIVE) Urine Urobilinogen 4.0 EU H EU (0.2-1.0) Ur Leukocyte Esterase NEGATIVE (NEGATIVE) Urine RBC 1-3 /hpf /hpf (0-3) Urine WBC 1-3 /hpf /hpf (0-3) Ur Epithelial Cells TRACE /lpf /lpf (NONE-1+) Urine Mucus TRACE /lpf /lpf (NONE-1+) Urine Glucose NEGATIVE (NEGATIVE) Medications Given: Discontinued Medications Hydromorphone HCl (Dilaudid) 1 mg IVP EDNOW ONE Stop: 07/23/18 08:34 Last Admin: 07/23/18 08:46 Dose: 1 mg Sodium Chloride (Ns) 1,000 mls @ 0 mls/hr IV EDNOW ONE; Wide Open PRN Reason: Protocol Stop: 07/23/18 08:34 Last Admin: 07/23/18 08:47 Dose: 1,000 mls Ketorolac Tromethamine (Toradol) 15 mg IVP EDNOW ONE Stop: 07/23/18 10:07 Last Admin: 07/23/18 10:13 Dose: 15 mg Departure - Departure Disposition: Home, Routine, Self-Care Clinical Impression: Flank pain Condition: Good Instructions: Narcotic Safety (ED), Flank Pain (ED) Additional Instructions: Percocet as needed for pain. Continue regular medications Return for worsening pain, fever, vomiting Follow-up with Dr. Mccoy for re-evaluation in the next 2 days Referrals: Tacos Mccoy MD [Primary Care Provider] - 1-2 days without fail Prescriptions: oxyCODONE/APAP 5/325 [Percocet 5/325 (*)] 1 tab PO Q4-6PRN PRN #10 tab PRN Reason: Pain, Moderate
[2018-07-23] MEDS ORDERED: NS 1,000 ML IV ONE (08:33)
[2018-07-23] MEDS ORDERED: HYDROmorphONE/DILAUDID 2 MG/ML INJ IVP ONE (08:33)
[2018-07-23 08:52] LABS: PLATELET COUNT 222 10^3/uL (150-400)
[2018-07-23] MEDS ORDERED: KETOROLAC 15 MG/1 ML SDV IVP ONE (10:06)
[2018-07-23 11:39] VITALS: BP 155/77
== END 2018-07-23 11:42 | disposition home or self-care (01) ==
DX: R10.9 Unspecified abdominal pain (principal); M54.9 Dorsalgia, unspecified; I10 Essential (primary) hypertension; E78.5 Hyperlipidemia, unspecified; Z87.442 Personal history of urinary calculi
CPT/HCPCS: 74176; 99284; J1170; J1885